=== PATIENT | female | born 1980 | race Hispanic/Latino ===

== ENCOUNTER 2018-11-03 21:40 | Emergency (ER) | payer OTHER ==
[2018-11-03] MEDS ORDERED: SODIUM CHLORIDE 0.9% 1000ML 1,000 ML IV ONE (21:55)
[2018-11-03 22:05] LABS: BASOPHILS % (AUTO) 1.1 % (0.0-5.0); EOSINOPHILS % (AUTO) 9.6 % (0.0-8.0); HEMATOCRIT 37.4 % (36-48); LYMPHOCYTES % (AUTO) 29.3 % (21.0-51.0); MEAN CORPUSCULAR HEMOGLOBIN 30.9 pg (27.0-33.0); MEAN CORPUSCULAR HGB CONC 34.5 g/dL (32.0-36.0); MEAN CORPUSCULAR VOLUME 89.5 fL (79-99); MONOCYTES % (AUTO) 8.5 % (3.0-13.0); NEUTROPHILS % (AUTO) 51.5 % (40.0-77.0); PLATELET COUNT (AUTO) 184 K/uL (130-400); RED BLOOD CELL COUNT(AUTO) 4.18 MIL/uL (4.00-5.50); RED CELL DISTRIBUTION WIDTH 13.2 % (11.0-15.5); WHITE BLOOD COUNT (AUTO) 8.2 K/uL (4.8-10.8)
[2018-11-03 22:19] LABS: CARBON DIOXIDE 22 mmol/L (21-32); CHLORIDE 105 mmol/L (101-111); CREATININE 0.8 mg/dL (0.5-1.5); GLOMERULAR FILTR. RATE CALC 86 mL/min (>60); GLUCOSE,RANDOM 104 mg/dL (70-105); POTASSIUM 4.3 mmol/L (3.5-5.1); SODIUM SERUM 138 mmol/L (136-145); UREA NITROGEN, BLOOD 13 mg/dL (7-18)
[2018-11-03 22:23] LABS: ALANINE AMINOTRANSFERASE 25 U/L (12-78); ALBUMIN 3.4 g/dL (3.5-5.0); ALCOHOL, BLOOD < 3 mg/dL (0-10); ASPARTATE AMINOTRANSFERASE 55 U/L (10-37); BILIRUBIN,TOTAL 0.3 mg/dL (0.2-1.0); LIPASE 138 U/L (114-286); TOTAL PROTEIN, SERUM 7.8 g/dL (6.0-8.3)
[2018-11-03 22:24] LABS: INR 0.93 (0.85-1.15); PARTIAL THROMBOPLASTIN TIME 23.3 SEC (26.3-35.5); PROTHROMBIN TIME 9.8 SEC (9.6-11.6)
[2018-11-03] MEDS ORDERED: IOHEXOL 350 MG/ML 100ML INFUS..BTL IV ONE (22:29)
[2018-11-03 23:35] LABS: APPEARANCE,URINE Clear (CLEAR); BILIRUBIN,URINE Negative (NEGATIVE); COLOR,URINE Yellow (YELLOW); GLUCOSE, URINE (UA) Negative (NEGATIVE); KETONES,URINE Negative (NEGATIVE); LEUKOCYTE ESTERASE ,URINE Negative (NEGATIVE); NITRATE,URINE Positive (NEGATIVE); OCCULT BLOOD,URINE Negative (NEGATIVE); PH,URINE 6.5 (5.0-8.0); PROTEIN,URINE Negative (NEGATIVE)
[2018-11-03 23:40] LABS: HCG,QUAL RESULT NEGATIVE (NEGATIVE)
[2018-11-03 23:44] LABS: AMPHET/METH SCREEN,URINE NEGATIVE (NEGATIVE); BARBITURATE SCREEN, URINE NEGATIVE (NEGATIVE); BENZODIAZEPINES SCREEN,URINE POSITIVE (NEGATIVE); CANNABINOID SCREEN,URINE POSITIVE (NEGATIVE); COCAINE SCREEN,URINE NEGATIVE (NEGATIVE); OPIATE SCREEN,URINE NEGATIVE (NEGATIVE); PHENCYCLIDINE SCREEN,URINE NEGATIVE (NEGATIVE)
[2018-11-03] MEDS ORDERED: ONDANSETRON HCL 4 MG/2 ML VIAL ONE (23:49)
[2018-11-03] MEDS ORDERED: MORPHINE SULFATE 2 MG/ML 1ML SYG ONE (23:49)
[2018-11-03 23:53] LABS: BACTERIA,URINE Few /HPF (None Seen); RBC,URINE None Seen /HPF (0-1); WBC,URINE 0-1 /HPF (0-1)
[2018-11-03 23:54] LABS: MUCUS,URINE Rare LPF (None Seen); SQUAMOUS EPITHELIAL CELL,UR Rare /HPF (0-2)
== END 2018-11-04 00:44 | disposition home or self-care (01) ==
LOC: EDH 21:40
DX: S39.012A Strain of muscle, fascia and tendon of lower back, initial encounter (principal); S16.1XXA Strain of muscle, fascia and tendon at neck level, initial encounter; S30.0XXA Contusion of lower back and pelvis, initial encounter; S50.02XA Contusion of left elbow, initial encounter; S50.01XA Contusion of right elbow, initial encounter; F12.10 Cannabis abuse, uncomplicated; Z72.0 Tobacco use; W13.2XXA Fall from, out of or through roof, initial encounter; Y93.89 Activity, other specified; Y92.098 Other place in other non-institutional residence as the place of occurrence of the external cause; Y99.8 Other external cause status
CPT/HCPCS: 36415; 70450; 71260; 72125; 72128; 72131; 73080 ×2; 74177; 80053; 80305; 81001; 81025; 83690; 85025; 85610; 85730; 96374; 96375; 99285; G0480; J2405; J7030; Q9967

== ENCOUNTER 2018-12-31 15:11 | Emergency (ER) | payer SELFPAY | END 2018-12-31 15:39 | disposition home or self-care (01) | LOC: EDH 15:11 | DX: N64.4 Mastodynia (principal); Z72.0 Tobacco use; Z90.49 Acquired absence of other specified parts of digestive tract; Z98.51 Tubal ligation status | CPT/HCPCS: 99281 ==

== ENCOUNTER 2020-08-04 08:05 | Emergency (ER) | payer OTHER ==
[2020-08-04] MEDS ORDERED: PREDNISONE 10 MG TABLET ONE (09:00)
== END 2020-08-04 10:06 | disposition home or self-care (01) ==
LOC: EDH 08:05
DX: L23.89 Allergic contact dermatitis due to other agents (principal); Z98.51 Tubal ligation status; Z72.0 Tobacco use
CPT/HCPCS: 99283; J7512